=== PATIENT | male | born 1970 | race Caucasian/White ===

== ENCOUNTER 2017-01-04 01:27 | Emergency (ER) | payer OTHER ==
[~2017-01-04] VITALS: Ht 175.3 cm; Wt 82.7 kg
[~2017-01-04 01:27] MED LIST: ATEN50TA8 PO; CLON0.5T3 PO; EPP3/2 IM; HYDR50CA2 PO; MULT-506 PO
[2017-01-04 01:31] VITALS: TEMP 36.7; Ht 175.3 cm; Wt 82.7 kg
[2017-01-04] MEDS ORDERED: ONDANSETRON INJ 2 MG/ML 2 ML VIAL IV STA (01:56)
[2017-01-04] MEDS ORDERED: SODIUM CHLORIDE 0.9% 1000ML 1,000 ML IV STA (01:56)
[2017-01-04] MEDS ORDERED: TRAM-10 PO (01:57)
--- NOTE | 2017-01-04 02:02 | EMERGENCY ROOM VISIT NOTE ---
History Report prepared by Nicolasa: Marcellus Pacheco Under the Supervision of: Dr. Camden Bennett D.O. First contact with patient: 01:52 Chief Complaint: PAIN (GENERALIZED) Stated Complaint: PAIN/ALCOHOL WITHDRAWL History of Present Illness The patient is a 46 year old male who presents to the Emergency Room with complaints of generalized pain that began this morning. The patient has a past medical history of multiple back, knee, and ankle surgeries. He states that he has severe generalized pain. He has been drinking alcohol to cope with the pain. However, he stopped drinking after this morning because he wanted to be treated at the [facility] for his alcohol use. While at the [facility], he began to shake. He thinks he may be going through withdrawal. Source of History: patient Onset: chronic Position: other (global) Symptom Intensity: severe Quality: other (Generalized pain) Timing: constant Note: He is shaking. He denies any other abnormal symptoms. Review of Systems See HPI for pertinent positives and negatives. A total of ten systems were reviewed and were otherwise negative. Past Medical & Surgical Medical Problems: (1) Acute alcohol intoxication (2) Anxiety State Nos (3) Chronic back pain (4) Chronic low back pain (5) Effusion of left knee (6) Foot pain (7) Gout (8) HTN (hypertension) (9) Left knee pain (10) Mood disorder (11) Opioid dependence on agonist therapy (12) Opioid Dependence-Unspec (13) Wrist pain, right Surgical Problems: (1) Postoperative state (2) S/P arthroscopic knee surgery (3) S/P lumbar fusion Family History Diabetes mellitus Hypertension Social History Smoking Status: Former Smoker Alcohol Use: occasionally Drug Use: none Marital Status: single Occupation Status: employed Current/Historical Medications Scheduled Atenolol (Tenormin), 50 MG PO DAILY Epinephrine (Epipen), 0.3 MG IM UD Scheduled PRN Clonazepam (Klonopin), 0.5 MG PO TID PRN for Anxiety Tramadol (Ultram), 50 MG PO DIRECTED PRN for Pain Allergies Coded Allergies: No Known Allergies (Verified , 01/04/17) Physical Exam Vital Signs Date Time Temp Pulse Resp B/P (MAP) Pulse Ox O2 Delivery O2 Flow Rate FiO2 01/04/17 03:32 78 20 129/76 99 Room Air 01/04/17 02:28 67 01/04/17 02:19 71 18 135/90 99 Room Air 01/04/17 01:31 36.7 77 18 150/93 98 Room Air Physical Exam GENERAL: Awake, alert, well-appearing, in no distress. Alcohol on breath. HENT: Normocephalic, atraumatic. Oropharynx unremarkable. EYES: Normal conjunctiva. Sclera non-icteric. NECK: Supple. No nuchal rigidity. FROM. No JVD. RESPIRATORY: Clear to auscultation. CARDIAC: Regular rate, normal rhythm. Extremities warm and well perfused. Pulses equal. ABDOMEN: Soft, non-distended. No tenderness to palpation. No rebound or guarding. No masses. RECTAL: Deferred. MUSCULOSKELETAL: Chest examination reveals no tenderness. The back is symmetrical on inspection without obvious abnormality. There is no CVA tenderness to palpation. No joint edema. LOWER EXTREMITIES: Calves are equal size bilaterally and non-tender. No edema. No discoloration. NEURO: Normal sensorium. No sensory or motor deficits noted. SKIN: No rash or jaundice noted. Medical Decision & Procedures Laboratory Results 01/04/17 01:54 Red Blood Count 4.46, Mean Corpuscular Volume 95.5, Mean Corpuscular Hemoglobin 33.0, Mean Corpuscular Hemoglobin Concent 34.5, Mean Platelet Volume 10.6, Neutrophils (%) (Auto) 45.4, Lymphocytes (%) (Auto) 43.3, Monocytes (%) (Auto) 7.6, Eosinophils (%) (Auto) 2.0, Basophils (%) (Auto) 1.2, Neutrophils # (Auto) 2.95, Lymphocytes # (Auto) 2.81, Monocytes # (Auto) 0.49, Eosinophils # (Auto) 0.13, Basophils # (Auto) 0.08 01/04/17 01:54 Test 01/04/17 01:54 White Blood Count 6.49 K/uL (4.8-10.8) Red Blood Count 4.46 M/uL (4.7-6.1) Hemoglobin 14.7 g/dL (14.0-18.0) Hematocrit 42.6 % (42-52) Mean Corpuscular Volume 95.5 fL (80-100) Mean Corpuscular Hemoglobin 33.0 pg (25-34) Mean Corpuscular Hemoglobin Concent 34.5 g/dl (32-36) Platelet Count 249 K/uL (130-400) Mean Platelet Volume 10.6 fL (7.4-10.4) Neutrophils (%) (Auto) 45.4 % Lymphocytes (%) (Auto) 43.3 % Monocytes (%) (Auto) 7.6 % Eosinophils (%) (Auto) 2.0 % Basophils (%) (Auto) 1.2 % Neutrophils # (Auto) 2.95 K/uL (1.4-6.5) Lymphocytes # (Auto) 2.81 K/uL (1.2-3.4) Monocytes # (Auto) 0.49 K/uL (0.11-0.59) Eosinophils # (Auto) 0.13 K/uL (0-0.5) Basophils # (Auto) 0.08 K/uL (0-0.2) RDW Standard Deviation 51.4 fL (36.4-46.3) RDW Coefficient of Variation 14.7 % (11.5-14.5) Immature Granulocyte % (Auto) 0.5 % Immature Granulocyte # (Auto) 0.03 K/uL (0.00-0.02) Anion Gap 7.0 mmol/L (3-11) Est Creatinine Clear Calc Drug Dose 93.3 ml/min Estimated GFR () 104.9 Estimated GFR (Non- 90.5 BUN/Creatinine Ratio 13.0 (10-20) Calcium Level 9.3 mg/dl (8.5-10.1) Magnesium Level 2.2 mg/dl (1.8-2.4) Total Bilirubin 0.3 mg/dl (0.2-1) Direct Bilirubin 0.1 mg/dl (0-0.2) Aspartate Amino Transf (AST/SGOT) 30 U/L (15-37) Alanine Aminotransferase (ALT/SGPT) 39 U/L (12-78) Alkaline Phosphatase 74 U/L (45-117) Total Protein 7.2 gm/dl (6.4-8.2) Albumin 4.0 gm/dl (3.4-5.0) Ethyl Alcohol mg/dL 214.0 mg/dl (0-3) Laboratory results reviewed by me Medications Administered Medications (Trade) Dose Ordered Sig/Shanika Route Start Time Stop Time Status Last Admin Dose Admin Sodium Chloride 1,000 ml @ 999 mls/hr Q1H1M STAT IV 01/04/17 01:56 01/04/17 02:56 DC 01/04/17 02:19 999 MLS/HR Ondansetron HCl (Zofran Inj) 4 mg NOW STAT IV 01/04/17 01:56 01/04/17 01:58 DC 01/04/17 02:19 4 MG Lorazepam (Ativan Inj) 1 mg NOW STAT IV 01/04/17 02:54 01/04/17 02:55 DC 01/04/17 03:00 1 MG ED Course 0152: The patient was evaluated in room B10. A complete history and physical exam was performed. 0156: Ordered Zofran Inj 4 mg IV, Sodium Chloride 1000 ml @ 999 mls/hr IV 0254: Ordered Lorazepam 1 mg IV 0348: I reevaluated the patient. Discussed results and discharge instructions: He verbalized understanding and agreement. The patient is ready for discharge. Medical Decision Differential diagnoses include but are not limited to; alcohol abuse, electrolyte abnormality, chronic pain, and dehydration. Medication Reconciliation: I attest that I have personally reviewed the patient' s current medication list. Blood pressure screening: Patient was found to have normal blood pressure on screening and does not require follow-up. Patient resting in no distress on repeat examination 4:09 AM. Patient initially wanted to leave and drive home he was told he needed to find a ride. Patient has no other current complaints he was evaluated for alcohol abuse Impression Primary Impression: Alcohol abuse Additional Impression: Generalized pain Scribe Attestation The scribe's documentation has been prepared under my direction and personally reviewed by me in its entirety. I confirm that the note above accurately reflects all work, treatment, procedures, and medical decision making performed by me. Departure Information Dispostion Home / Self-Care Referrals No Doctor, Assigned (PCP) Forms HOME CARE DOCUMENTATION FORM, IMPORTANT VISIT INFORMATION, WORK / SCHOOL INSTRUCTIONS Patient Instructions ED Alcohol Abuse, My [facility] Health Problem Qualifiers
[2017-01-04 02:10] LABS: BASO % 1.2 %; BASO ABS # 0.08 K/uL (0-0.2); COMPLETE YES; HEMATOCRIT 42.6 % (42-52); IG% 0.5 %; LYMPH % 43.3 %; LYMPH ABS # 2.81 K/uL (1.2-3.4); MEAN CELL VOLUME 95.5 fL (80-100); MEAN CORPUSCULAR HGB CONC 34.5 g/dl (32-36); MEAN PLATELET VOLUME 10.6 fL (7.4-10.4); MONO % 7.6 %; NEUT % 45.4 %; PLATELET COUNT 249 K/uL (130-400); RED BLOOD COUNT 4.46 M/uL (4.7-6.1); WHITE BLOOD COUNT 6.49 K/uL (4.8-10.8)
[2017-01-04 02:29] LABS: CALCIUM 9.3 mg/dl (8.5-10.1); MAGNESIUM 2.2 mg/dl (1.8-2.4); POTASSIUM 4.1 mmol/L (3.5-5.1)
[2017-01-04] MEDS ORDERED: LORAZEPAM 2 MG/ML 1 ML VIAL IV STA (02:54)
[2017-01-04 09:04] VITALS: BP 143/95; PULSE 78; O2SAT 97
== END 2017-01-04 09:06 | disposition home or self-care (01) ==
LOC: C.EDB 01:28
DX: F10.10 Alcohol abuse, uncomplicated (principal); R52 Pain, unspecified; F41.9 Anxiety disorder, unspecified; M54.5 Low back pain; M10.9 Gout, unspecified; I10 Essential (primary) hypertension; F11.20 Opioid dependence, uncomplicated; Z83.3 Family history of diabetes mellitus; Z82.49 Family history of ischemic heart disease and other diseases of the circulatory system; Z87.891 Personal history of nicotine dependence; Z79.899 Other long term (current) drug therapy

== ENCOUNTER 2017-03-01 18:35 | Emergency (ER) | payer OTHER ==
[~2017-03-01 18:35] MED LIST changes: -HYDR50CA2 PO; -MULT-506 PO; +TRAM-10 PO
[2017-03-01 18:40] VITALS: Ht 175.3 cm
[2017-03-01] MEDS ORDERED: HYDROmorphone INJ 1 MG/ML SYR IV PRN (19:00)
[2017-03-01] MEDS ORDERED: ONDANSETRON INJ 2 MG/ML 2 ML VIAL IV PRN (19:00)
[2017-03-01] MEDS ORDERED: INDOMETHACIN 25 MG CAP PO ONE (19:00)
[2017-03-01 19:21] LABS: BASO % 0.3 %; BASO ABS # 0.02 K/uL (0-0.2); COMPLETE YES; EOS % 3.6 %; HEMATOCRIT 38.8 % (42-52); IG% 0.2 %; LYMPH % 11.3 %; LYMPH ABS # 0.75 K/uL (1.2-3.4); MEAN CELL VOLUME 93.3 fL (80-100); MEAN CORPUSCULAR HEMOGLOBIN 32.5 pg (25-34); MEAN CORPUSCULAR HGB CONC 34.8 g/dl (32-36); MEAN PLATELET VOLUME 10.9 fL (7.4-10.4); MONO % 4.4 %; NEUT % 80.2 %; PLATELET COUNT 192 K/uL (130-400); RED BLOOD COUNT 4.16 M/uL (4.7-6.1); WHITE BLOOD COUNT 6.62 K/uL (4.8-10.8)
[2017-03-01] MEDS ORDERED: TRAM-10 PO (19:24)
[2017-03-01] MEDS ORDERED: CLON1TAB3 PO (19:24)
[2017-03-01] MEDS ORDERED: ATEN50TA8 PO (19:24)
[2017-03-01] MEDS ORDERED: ALLO300T2 PO (19:24)
[2017-03-01] MEDS ORDERED: QUET1TAB34 PO (19:24)
[2017-03-01 19:37] LABS: BLOOD UREA NITROGEN 14 mg/dl (7-18); CALCIUM 9.4 mg/dl (8.5-10.1); CARBON DIOXIDE 30 mmol/L (21-32); CHLORIDE 107 mmol/L (98-107); CREATININE 0.94 mg/dl (0.60-1.40); GLUCOSE 106 mg/dl (70-99); POTASSIUM 3.7 mmol/L (3.5-5.1); SODIUM 143 mmol/L (136-145)
[2017-03-01 19:42] LABS: URIC ACID 3.4 mg/dl (2.6-7.2)
--- NOTE | 2017-03-01 19:48 | DIAGNOSTIC IMAGING REPORT ---
LEFT FOOT MIN 3 VIEWS ROUTINE CLINICAL HISTORY: severe pain gout/cellulitis. Left foot pain. COMPARISON STUDY: Left foot 01/09/2012. FINDINGS: Mild osteoarthritis at the first MTP joint, unchanged. No acute fracture or dislocation. The Lisfranc joint is well aligned. Small plantar and posterior calcaneal spurs. Soft tissue swelling within the first and second MTP joints. There are tiny periarticular erosions at the first and second MTP joints. This is most pronounced at the head of the second metatarsal and base of the proximal phalanx of the second toe. No soft tissue calcifications. IMPRESSION: Soft tissue swelling with tiny bony erosions at the first and second MTP joints. This favors an inflammatory arthritis such as gout. Osteomyelitis could also have a similar appearance in the appropriate clinical setting. Electronically signed by: Mervin Duarte M.D. 03/01/2017 7:46 PM Dictated Date/Time: 03/01/2017 7:42 PM
[2017-03-01] MEDS ORDERED: INDO50CA97 PO (20:09)
--- NOTE | 2017-03-01 20:13 | EMERGENCY ROOM VISIT NOTE ---
History Report prepared by Nicolasa: Cheyenne Alegria Under the Supervision of: Dr. Frankie Macedo M.D. First contact with patient: 18:43 Chief Complaint: FOOT PAIN Stated Complaint: GOUT FLARE UP IN LF FOOT History of Present Illness The patient is a 46 year old male who presents to the Emergency Room with complaints of an episode of severe left foot pain starting yesterday. The patient states that he felt it coming on yesterday. He states that he took his gout medication and iced it yesterday with some relief. He reports that he awoke this morning and it seemed to be the worst he has ever had it before. He notes a tingling sensation down his leg when he touched his knee. He notes he took Naprosyn and Tylenol today with no relief. He notes he tried icing and elevating it today with no relief. He denies injuring his foot. Source of History: patient Onset: yesterday Position: foot (left) Symptom Intensity: severe Quality: tingling Timing: other (episode) Note: The patient complains of foot swelling. The patient denies injuring his foot. Review of Systems All systems have been listed, reviewed, and are negative other than those previously mentioned. Please see Additional Medical History Sheet. Past Medical & Surgical Medical Problems: (1) Acute alcohol intoxication (2) Anxiety State Nos (3) Chronic back pain (4) Chronic low back pain (5) Effusion of left knee (6) Foot pain (7) Gout (8) History of gout (9) HTN (hypertension) (10) Left knee pain (11) Mood disorder (12) Opioid dependence on agonist therapy (13) Opioid Dependence-Unspec (14) Wrist pain, right Surgical Problems: (1) Postoperative state (2) S/P arthroscopic knee surgery (3) S/P lumbar fusion Family History Diabetes mellitus Hypertension Social History Smoking Status: Former Smoker Alcohol Use: occasionally Drug Use: none Marital Status: single Occupation Status: employed Current/Historical Medications Scheduled Allopurinol (Zyloprim), 300 MG PO DAILY Atenolol (Tenormin), 50 MG PO DAILY Epinephrine (Epipen), 0.3 MG IM UD Indomethacin (Indocin), 1 CAP PO TID Scheduled PRN Clonazepam (Klonopin), 1 MG PO TID PRN for RESTLESS LEGS Quetiapine Fumarate (Seroquel), 100 MG PO HS PRN for Sleep Tramadol (Ultram), 100 MG PO Q6 PRN for Pain Allergies Coded Allergies: No Known Allergies (Verified , 01/04/17) Physical Exam Vital Signs Date Time Temp Pulse Resp B/P (MAP) Pulse Ox O2 Delivery O2 Flow Rate FiO2 03/01/17 20:20 36.8 80 20 172/99 100 03/01/17 18:40 36.8 80 20 172/99 100 Room Air Physical Exam GENERAL: Patient awake, alert, oriented x 3. Patient follows commands. Patient does not appear toxic. Patient is adequately hydrated and well- nourished. SKIN: No erythema, pallor, cyanosis or rash HEENT: Normal head, pupils equal, reactive to light and accommodation. LUNGS: Clear to auscultation. No wheezes, no rales, no rhonchi. HEART: No murmurs. No gallops. No rubs ABDOMEN: No masses, no rebound, no hepatomegaly or splenomegaly. EXTREMITIES: No signs of trauma. Tha swelling and tenderness of left foot primarily over the dorsum of the foot. Slightly red, but no other signs of infection. No calf or thigh tenderness. Old scar on medial aspect of left lower leg. NEUROLOGIC: Cranial nerves II-XII within normal limits. No gross motor sensory function deficits. Medical Decision & Procedures ER Provider Diagnostic Interpretation: Radiology results as stated below per my review and radiologist interpretation: LEFT FOOT MIN 3 VIEWS ROUTINE CLINICAL HISTORY: severe pain gout/cellulitis. Left foot pain. COMPARISON STUDY: Left foot 01/09/2012. FINDINGS: Mild osteoarthritis at the first MTP joint, unchanged. No acute fracture or dislocation. The Lisfranc joint is well aligned. Small plantar and posterior calcaneal spurs. Soft tissue swelling within the first and second MTP joints. There are tiny periarticular erosions at the first and second MTP joints. This is most pronounced at the head of the second metatarsal and base of the proximal phalanx of the second toe. No soft tissue calcifications. IMPRESSION: Soft tissue swelling with tiny bony erosions at the first and second MTP joints. This favors an inflammatory arthritis such as gout. Osteomyelitis could also have a similar appearance in the appropriate clinical setting. Electronically signed by: Mervin Duarte M.D. 03/01/2017 7:46 PM Dictated Date/Time: 03/01/2017 7:42 PM Laboratory Results 03/01/17 19:10 Red Blood Count 4.16, Mean Corpuscular Volume 93.3, Mean Corpuscular Hemoglobin 32.5, Mean Corpuscular Hemoglobin Concent 34.8, Mean Platelet Volume 10.9, Neutrophils (%) (Auto) 80.2, Lymphocytes (%) (Auto) 11.3, Monocytes (%) (Auto) 4.4, Eosinophils (%) (Auto) 3.6, Basophils (%) (Auto) 0.3, Neutrophils # (Auto) 5.31, Lymphocytes # (Auto) 0.75, Monocytes # (Auto) 0.29, Eosinophils # (Auto) 0.24, Basophils # (Auto) 0.02 03/01/17 19:10 Test 03/01/17 19:10 White Blood Count 6.62 K/uL (4.8-10.8) Red Blood Count 4.16 M/uL (4.7-6.1) Hemoglobin 13.5 g/dL (14.0-18.0) Hematocrit 38.8 % (42-52) Mean Corpuscular Volume 93.3 fL (80-100) Mean Corpuscular Hemoglobin 32.5 pg (25-34) Mean Corpuscular Hemoglobin Concent 34.8 g/dl (32-36) Platelet Count 192 K/uL (130-400) Mean Platelet Volume 10.9 fL (7.4-10.4) Neutrophils (%) (Auto) 80.2 % Lymphocytes (%) (Auto) 11.3 % Monocytes (%) (Auto) 4.4 % Eosinophils (%) (Auto) 3.6 % Basophils (%) (Auto) 0.3 % Neutrophils # (Auto) 5.31 K/uL (1.4-6.5) Lymphocytes # (Auto) 0.75 K/uL (1.2-3.4) Monocytes # (Auto) 0.29 K/uL (0.11-0.59) Eosinophils # (Auto) 0.24 K/uL (0-0.5) Basophils # (Auto) 0.02 K/uL (0-0.2) RDW Standard Deviation 47.7 fL (36.4-46.3) RDW Coefficient of Variation 14.0 % (11.5-14.5) Immature Granulocyte % (Auto) 0.2 % Immature Granulocyte # (Auto) 0.01 K/uL (0.00-0.02) Anion Gap 6.0 mmol/L (3-11) Estimated GFR () 113.0 Estimated GFR (Non- 97.5 BUN/Creatinine Ratio 15.0 (10-20) Uric Acid 3.4 mg/dl (2.6-7.2) Calcium Level 9.4 mg/dl (8.5-10.1) Laboratory results as stated above per my review. Medications Administered Medications (Trade) Dose Ordered Sig/Shanika Route Start Time Stop Time Status Last Admin Dose Admin Hydromorphone HCl (Dilaudid Inj) 1 mg Q1HWA PRN IV 03/01/17 19:00 03/01/17 22:34 DC 03/01/17 19:03 1 MG Ondansetron HCl (Zofran Inj) 4 mg Q1HWA PRN IV 03/01/17 19:00 03/01/17 22:34 DC 03/01/17 19:03 4 MG Indomethacin (Indocin Cap) 25 mg NOW ONCE PO 03/01/17 19:00 03/01/17 19:01 DC 03/01/17 19:03 25 MG Prednisone (PredniSONE TAB) 60 mg NOW STAT PO 03/01/17 20:06 03/01/17 20:08 DC 03/01/17 20:14 60 MG Oxycodone/ Acetaminophen (Percocet 5/ 325MG Home Pack) 1 homepack UD ONCE PO 03/01/17 20:15 03/01/17 20:16 DC 03/01/17 20:14 1 HOMEPACK ED Course 1843: Past medical records reviewed. The patient was evaluated in room B11B. A complete history and physical examination was performed. 1899: Ordered Indocin Cap 25 mg PO, Zofran Inj 4 mg PRN IV nausea, Dilaudid Inj 1 mg PRN IV pain. 1957:Upon reevaluation, the patient appeared to have improvement of his symptoms. I discussed today's findings with the patient. He verbalized agreement of the treatment plan. The patient was discharged home. 2005: Ordered Prednisone 60 mg PO. 2015: Ordered Percocet 5/325MG Home Pack 1 homepack PO. Medical Decision Differential diagnoses include gout, cellulitis. The patient is here with severe left foot pain. He has marked swelling and tenderness of the left foot. The patient has a prior history of gout but this seems to be worse than usual. I was concerned about the amount of swelling and therefore x-rays were obtained in addition to blood work. His uric acid level is not elevated. He is on allopurinol. The patient does have erosions on his x -ray consistent with gout. The patient initially was given pain medication plus Indocin. I elected to give him 1 dose of prednisone but will have him maintain on Indocin at home. The patient does have a history of some mental health issues and therefore I will not continue the prednisone. The patient will need to follow-up with his family physician regarding gout and his elevated blood pressure Medication Reconcilliation Current Medication List: was personally reviewed by me Blood Pressure Screening Patient's blood pressure: Elevated blood pressure Blood pressure disposition: Referred to PCP Impression Primary Impression: Acute gout Scribe Attestation The scribe's documentation has been prepared under my direction and personally reviewed by me in its entirety. I confirm that the note above accurately reflects all work, treatment, procedures, and medical decision making performed by me. Departure Information Dispostion Home / Self-Care Prescriptions Indomethacin (INDOCIN) 50 Mg Cap 1 CAP PO TID for 10 Days, #30 CAP 1 Refill Prov: Frankie Macedo M.D. 03/01/17 Referrals No Doctor, Assigned (PCP) Forms HOME CARE DOCUMENTATION FORM, IMPORTANT VISIT INFORMATION Patient Instructions Gout, [facility] Additional Instructions 50 mg of Indocin 3 times a day until pain has resolved. 1-2 Percocet every 4 hours as needed for severe pain. Drink extra fluids. Follow-up with your family physician within the next 10 days regarding gout and your elevated blood pressure.
[2017-03-01] MEDS ORDERED: PERCOCET HOME PACK PO ONE (20:15)
[2017-03-01 20:20] VITALS: BP 172/99; PULSE 80; TEMP 36.8; O2SAT 100
== END 2017-03-01 20:20 | disposition home or self-care (01) ==
LOC: C.EDB 18:35
DX: M10.9 Gout, unspecified (principal); F41.9 Anxiety disorder, unspecified; M54.5 Low back pain; G89.29 Other chronic pain; I10 Essential (primary) hypertension; F11.20 Opioid dependence, uncomplicated; Z83.3 Family history of diabetes mellitus; Z82.49 Family history of ischemic heart disease and other diseases of the circulatory system; Z87.891 Personal history of nicotine dependence; Z79.899 Other long term (current) drug therapy

== ENCOUNTER 2017-07-12 19:11 | Inpatient (IN) | payer OTHER ==
[~2017-07-12] VITALS: Ht 177.8 cm; Wt 80.3 kg
[~2017-07-12 19:11] MED LIST changes: +ALLO300T2 PO; -CLON0.5T3 PO; +CLON1TAB3 PO; +INDO50CA97 PO; +QUET1TAB34 PO
--- NOTE | 2017-07-12 19:25 | EMERGENCY ROOM VISIT NOTE ---
History Report prepared by Nicolasa: Mike Nieves Under the Supervision of: Dr. Stephen Nix M.D. First contact with patient: 19:20 Stated Complaint: OVERDOSE History of Present Illness The patient is a 47 year old male who presents to the Emergency Room with complaints of an episode of an overdose occurring today. Per nursing staff, the patient's daughter found him wandering around today. She notes that the daughter found several beer cans lying around. She reports that the patient has a history of alcoholism, and typically drinks vodka. She notes that the patient was found with vomit on his face. The patient reports that he is not experiencing any pain. HPI limited secondary to intoxication. Source of History: patient History Limited By: intoxication Onset: today Quality: other (intoxication) Timing: other (an episode) Associated Symptoms: + vomiting Note: The patient states that he is not currently experiencing any pain. Review of Systems ROS limited secondary to intoxication. Past Medical & Surgical Medical Problems: (1) Acute alcohol intoxication (2) Alcohol withdrawal (3) Anxiety State Nos (4) Chronic back pain (5) Chronic low back pain (6) Effusion of left knee (7) Foot pain (8) Gout (9) History of gout (10) HTN (hypertension) (11) Left knee pain (12) Mood disorder (13) Opioid dependence on agonist therapy (14) Opioid Dependence-Unspec (15) Wrist pain, right Surgical Problems: (1) Postoperative state (2) S/P arthroscopic knee surgery (3) S/P lumbar fusion Family History Diabetes mellitus Hypertension Social History Smoking Status: Former Smoker Alcohol Use: occasionally Drug Use: none Marital Status: single Occupation Status: employed Current/Historical Medications Unable to Obtain Active Prescriptions or Reported Meds Allergies Coded Allergies: No Known Allergies (Verified , 01/04/17) Physical Exam Vital Signs Date Time Temp Pulse Resp B/P (MAP) Pulse Ox O2 Delivery O2 Flow Rate FiO2 07/12/17 22:11 142 15 07/12/17 21:56 125 29 96 07/12/17 21:44 Nasal Cannula 2.0 07/12/17 21:41 108 97 07/12/17 21:31 159/92 07/12/17 21:26 138 99 07/12/17 21:11 109 98 07/12/17 21:01 166/101 07/12/17 20:56 128 35 97 07/12/17 20:41 135 23 188/119 07/12/17 20:31 221/210 07/12/17 20:26 148 21 98 07/12/17 20:22 131/102 07/12/17 19:47 153/101 07/12/17 19:41 110 28 97 07/12/17 19:29 106 07/12/17 19:23 37.5 109 18 184/108 96 07/12/17 19:22 184/108 Physical Exam GENERAL: Awake, alert, drowsy-appearing, in no distress HENT: Normocephalic, atraumatic. Oropharynx unremarkable. Dry mucous membranes. EYES: Normal conjunctiva. Sclera non-icteric. Pupils are 3mm bilaterally and reactive. NECK: Supple. No nuchal rigidity. FROM. No JVD. RESPIRATORY: Clear to auscultation. CARDIAC: Regular rate, normal rhythm. Extremities warm and well perfused. Pulses equal. ABDOMEN: Soft, non-distended. No tenderness to palpation. No rebound or guarding. No masses. RECTAL: Deferred. MUSCULOSKELETAL: Chest examination reveals no tenderness. The back is symmetrical on inspection without obvious abnormality. There is no CVA tenderness to palpation. No joint edema. LOWER EXTREMITIES: Calves are equal size bilaterally and non-tender. No edema. No discoloration. NEURO: Normal sensorium. No sensory or motor deficits noted. Slurred speech. No clonus. Normal DTRs. SKIN: Warm/dry. No rash or jaundice noted. Medical Decision & Procedures ER Provider Diagnostic Interpretation: Radiology results as stated below per my review and radiologist interpretation: HEAD WITHOUT CONTRAST (CT) FINDINGS: Form Worker topogram: Unremarkable. Image quality is degraded by significant motion artifact limiting diagnostic sensitivity. Ventricles and sulci normal in size. Brain parenchyma normal in appearance with preserved tai-white differentiation. No mass effect or midline shift. No hemorrhage or acute territorial infarct. No extra-axial fluid collection. Minimal layering fluid in the right maxillary sinus. Calvarium intact. IMPRESSION: 1. Allowing for degradation of image quality due to motion artifact, no acute intracranial abnormality. Electronically signed by: Jg Mota M.D. 07/12/2017 8:17 PM CHEST ONE VIEW PORTABLE FINDINGS: Mildly low lung volumes with prominence of the cardiomediastinal silhouette and pulmonary vasculature. Lungs and pleural spaces otherwise clear. Osseous structures normal. Upper abdomen normal. IMPRESSION: 1. Mildly low lung volumes. Otherwise no acute cardiopulmonary disease. Electronically signed by: Jg Mota M.D. 07/12/2017 9:24 PM Laboratory Results Test 07/12/17 19:43 07/12/17 19:45 07/12/17 22:10 Total Bilirubin 0.4 mg/dl (0.2-1) Direct Bilirubin < 0.1 mg/dl (0-0.2) Aspartate Amino Transf (AST/SGOT) 23 U/L (15-37) Alanine Aminotransferase (ALT/SGPT) 25 U/L (12-78) Alkaline Phosphatase 83 U/L (45-117) Total Protein 7.4 gm/dl (6.4-8.2) Albumin 3.8 gm/dl (3.4-5.0) Globulin 3.6 gm/dl (2.5-4.0) Albumin/Globulin Ratio 1.1 (0.9-2) Thyroid Stimulating Hormone (TSH) 1.590 uIu/ml (0.300-4.500) Salicylates Level < 1.7 mg/dl (2.8-20) Acetaminophen Level < 2 ug/ml (10-30) Ethyl Alcohol mg/dL 51.5 mg/dl (0-3) Procalcitonin < 0.05 ng/ml (0-0.5) Magnesium Level 2.0 mg/dl (1.8-2.4) Total Creatine Kinase 299 U/L (39-308) Troponin I 0.023 ng/ml (0-0.045) Beta-Hydroxybutyric Acid 1.23 mg/dL (0.2-2.81) Laboratory results reviewed by me Medications Administered Medications (Trade) Dose Ordered Sig/Shanika Route Start Time Stop Time Status Last Admin Dose Admin Lorazepam (Ativan Inj) 2 mg STK-MED ONCE .ROUTE 07/12/17 20:16 07/12/17 20:17 DC 07/12/17 20:20 2 MG Olanzapine (Zyprexa Inj) 10 mg NOW STAT IM 07/12/17 20:16 07/12/17 20:17 DC 07/12/17 20:20 10 MG Potassium Chloride/Sodium Chloride 1,000 ml @ 200 mls/hr Q5H ONCE IV 07/12/17 21:15 07/12/17 23:33 DC 07/12/17 22:22 200 MLS/HR Lorazepam (Ativan Inj) PRN Dosing -Active Protocol Q1H PRN IV 07/12/17 21:15 08/11/17 21:14 07/13/17 13:35 1 MG ECG Indication: other (overdose) Rate (beats per minute): 106 Rhythm: sinus tachycardia Findings: no acute ischemic change, other (Normal axis, normal interval, nonspecific anterior ST and T wave abnormalities) ED Course 1919: The patient was evaluated in room A10. A complete history and physical exam was performed. 2052: Upon reexamination, the patient was stable. I discussed the test results and treatment plan with him. The patient will be evaluated for further management. Medical Decision I reviewed the patient's past medical history, medications, and the nursing notes as described above. Differential diagnoses include: polysubstance overdose, alcohol intoxication, intracranial hemorrhage, encephalopathy, alcohol withdrawal, Delirium tremens. The patient is a 47-year-old gentleman with a past medical history of alcohol abuse and opioid abuse who presents emergency Department after being found altered in his home apparently having vomited on himself. On arrival the patient is spontaneously alert however staring and requiring stimulus to interact and only giving one-word replies. Exam negative for clonus and otherwise normal reflexes. Pupils 3 mm bilaterally and reactive. Skin is warm and dry. Has mild slurred speech. 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 Otherwise, no significant toxidrome. Labs notable for bicarbonate of 18 with a gap of 16. Etoh 50s. Lactate pending. Given the patient's history and these findings workup likely consistent with alcoholic ketoacidosis. Patient was given additional IV fluids with D5NS. After having CT of the head patient became significantly combative with staff and required IM Zyprexa and Ativan. CT head negative. Family denies h/o or concerns for SI. It [facility], who will admit the patient for further management. Medication Reconcilliation Current Medication List: was personally reviewed by me Blood Pressure Screening Patient's blood pressure: Elevated blood pressure Referred to the hospitalist. Consults Time Called: 2049 Consulting Physician: Dr. Knapp - Nacho Culp Returned Call: 2052 I discussed the patient with Dr. Knapp - HospitalistNacho. He will evaluate the patient for further treatment. Impression Primary Impression: Alcoholic ketoacidosis Additional Impression: Polysubstance overdose Critical Care I have personally spent greater than 80 minutes of critical care time in the direct management of this patient. This includes bedside care, interpretation of diagnostic studies, and testing, discussion with consultants, patient, and family members, and other required patient management activities. This 80 minutes is in excess of all separately billable procedures. Scribe Attestation The scribe's documentation has been prepared under my direction and personally reviewed by me in its entirety. I confirm that the note above accurately reflects all work, treatment, procedures, and medical decision making performed by me. Departure Information Dispostion Being Evaluated By Hospitalist (ERASED) Prescriptions Unable to Obtain Active Prescriptions or Reported Meds Referrals No Doctor, Assigned (PCP) Problem Qualifiers
[2017-07-12] MEDS ORDERED: SODIUM CHLORIDE 0.9% 1000ML 1,000 ML IV STA (19:28)
[2017-07-12 20:03] LABS: BASO % 0.5 %; BASO ABS # 0.08 K/uL (0-0.2); COMPLETE YES; HEMATOCRIT 44.8 % (42-52); IG% 0.4 %; LYMPH % 6.3 %; LYMPH ABS # 1.05 K/uL (1.2-3.4); MEAN CELL VOLUME 94.7 fL (80-100); MEAN CORPUSCULAR HGB CONC 34.8 g/dl (32-36); MEAN PLATELET VOLUME 10.8 fL (7.4-10.4); MONO % 6.7 %; NEUT % 86.1 %; PLATELET COUNT 290 K/uL (130-400); RED BLOOD COUNT 4.73 M/uL (4.7-6.1); WHITE BLOOD COUNT 16.77 K/uL (4.8-10.8)
[2017-07-12] MEDS ORDERED: LORAZEPAM 2 MG/ML 1 ML VIAL IM STA (20:16)
[2017-07-12] MEDS ORDERED: OLANZAPINE 10 MG/2.1 ML SDV IM STA (20:16)
[2017-07-12] MEDS ORDERED: LORAZEPAM 2 MG/ML 1 ML VIAL ONE ×2 (20:16→22:40)
--- NOTE | 2017-07-12 20:18 | DIAGNOSTIC IMAGING REPORT ---
HEAD WITHOUT CONTRAST (CT) CLINICAL HISTORY: 47 years-old Male presenting with ams, combative, alcohol overdose. TECHNIQUE: Multidetector CT imaging of the head was performed without the use of intravenous contrast. IV contrast: None. A dose lowering technique was used consistent with the principles of ALARA (as low as reasonably achievable). COMPARISON: 04/20/2015. CT DOSE (mGy.cm): The estimated cumulative dose is 2128.43 mGy.cm. FINDINGS: Telephone Appointment Clerk topogram: Unremarkable. Image quality is degraded by significant motion artifact limiting diagnostic sensitivity. Ventricles and sulci normal in size. Brain parenchyma normal in appearance with preserved tai-white differentiation. No mass effect or midline shift. No hemorrhage or acute territorial infarct. No extra-axial fluid collection. Minimal layering fluid in the right maxillary sinus. Calvarium intact. IMPRESSION: 1. Allowing for degradation of image quality due to motion artifact, no acute intracranial abnormality. Electronically signed by: Jg Mota M.D. 07/12/2017 8:17 PM Dictated Date/Time: 07/12/2017 8:14 PM
[2017-07-12 20:22] LABS: ALT/SGPT 25 U/L (12-78); BLOOD UREA NITROGEN 13 mg/dl (7-18); BUN/CREATININE RATIO 9.3 (10-20); CALCIUM 8.7 mg/dl (8.5-10.1); CARBON DIOXIDE 19 mmol/L (21-32); CHLORIDE 114 mmol/L (98-107); CREATININE 1.39 mg/dl (0.60-1.40); GLUCOSE 102 mg/dl (70-99); POTASSIUM 3.6 mmol/L (3.5-5.1); SODIUM 149 mmol/L (136-145)
[2017-07-12 20:27] LABS: ACETAMINOPHEN < 2 ug/ml (10-30)
[2017-07-12 20:32] LABS: ALB/GLOB RATIO 1.1 (0.9-2); ALKALINE PHOSPHATASE 83 U/L (45-117); AST/SGOT 23 U/L (15-37)
[2017-07-12] MEDS ORDERED: [UNRECOGNIZED DRUG - MIXTURE] IV STA (20:41)
[2017-07-12] MEDS ORDERED: THIAMINE HCL 100 MG/ML 2 ML VIAL IV STA (21:04)
[2017-07-12] MEDS ORDERED: GABAPENTIN 600 MG TAB PO SCH (21:15)
[2017-07-12] MEDS ORDERED: LORAZEPAM 2 MG/ML 1 ML VIAL IV PRN (21:15)
[2017-07-12] MEDS ORDERED: SODIUM CHLOR 0.45% + 20MEQ KCL 1,000 ML IV ONE (21:15)
--- NOTE | 2017-07-12 21:26 | DIAGNOSTIC IMAGING REPORT ---
CHEST ONE VIEW PORTABLE CLINICAL HISTORY: 47 years-old Male presenting with sob. TECHNIQUE: Portable supine AP view of the chest was obtained. COMPARISON: 12/21/2012. FINDINGS: Mildly low lung volumes with prominence of the cardiomediastinal silhouette and pulmonary vasculature. Lungs and pleural spaces otherwise clear. Osseous structures normal. Upper abdomen normal. IMPRESSION: 1. Mildly low lung volumes. Otherwise no acute cardiopulmonary disease. Electronically signed by: Jg Mota M.D. 07/12/2017 9:24 PM Dictated Date/Time: 07/12/2017 9:24 PM
[2017-07-12 22:34] LABS: PARTIAL THROMBOPLASTIN RATIO 0.8
[2017-07-12] MEDS ORDERED: ACETAMINOPHEN 325 MG TAB PO PRN (22:45)
[2017-07-12] MEDS ORDERED: NITROGLYCERIN 0.4 MG SL PER TAB CHARGE SL PRN (22:45)
[2017-07-12] MEDS ORDERED: OXYCODONE/ACETAMINOPHEN 5-325 TAB PO PRN (22:45)
[2017-07-12 22:50] LABS: BETA-HYDROXYBUTYRATE 1.23 mg/dL (0.2-2.81)
[2017-07-12] MEDS ORDERED: SODIUM CHLOR 0.45% + 20MEQ KCL 1,000 ML IV STA (23:29)
[2017-07-12] MEDS ORDERED: THIAMINE HCL INJ 100 MG in SYRINGE 9 ML IV SCH (23:30)
[2017-07-12] MEDS ORDERED: PROCHLORPERAZINE INJ 5 MG in SYRINGE 4 ML IV PRN (23:30)
[2017-07-13] VITALS (8 sets, daily range): BP systolic 145–195; BP diastolic 79–105; PULSE 71–100; TEMP 36.4–36.8; O2SAT 97–100; Ht 177.8 cm; Wt 80.3 kg
[2017-07-13] MEDS ORDERED: SODIUM CHLOR 0.45% + 20MEQ KCL 1,000 ML IV SCH (01:00)
[2017-07-13 01:16] LABS: URINE APPEARANCE CLEAR (CLEAR); URINE BILIRUBIN NEG (NEG); URINE COLOR YELLOW; URINE NITRITE NEG (NEG); URINE SPECIFIC GRAVITY 1.019 (1.000-1.030); UROBILINOGEN NEG (NEG); ZZUR CULT IF INDIC CLEAN CATCH NO
[2017-07-13 01:18] LABS: MANUAL MICROSCOPIC REQUIRED? NO; REVIEW REQ? NO
[2017-07-13 01:30] LABS: BENZODIAZEPINE, URINE NEG (NEG); COCAINE,URINE NEG (NEG); PHENCYCLIDINE, URINE NEG (NEG)
[2017-07-13] MEDS ORDERED: LORAZEPAM INJ 3 MG in SYRINGE 1.5 ML IV ONE (01:30)
[2017-07-13] MEDS ORDERED: METOPROLOL TARTRATE 1 MG/ML VIAL IV. SCH (02:00)
[2017-07-13] MEDS ORDERED: GABAPENTIN 1200MG LOADING DOSE PO SCH (02:00)
[2017-07-13 04:23] LABS: BASO % 0.5 %; BASO ABS # 0.05 K/uL (0-0.2); COMPLETE YES; EOS % 0.1 %; HEMATOCRIT 36.8 % (42-52); IG% 0.4 %; LYMPH % 14.6 %; LYMPH ABS # 1.43 K/uL (1.2-3.4); MEAN CELL VOLUME 95.6 fL (80-100); MEAN CORPUSCULAR HEMOGLOBIN 32.5 pg (25-34); MEAN PLATELET VOLUME 10.9 fL (7.4-10.4); NEUT % 76.4 %; PLATELET COUNT 223 K/uL (130-400); RED BLOOD COUNT 3.85 M/uL (4.7-6.1); WHITE BLOOD COUNT 9.79 K/uL (4.8-10.8)
[2017-07-13 04:34] LABS: BUN/CREATININE RATIO 11.3 (10-20); CALCIUM 7.9 mg/dl (8.5-10.1); CREATININE 1.11 mg/dl (0.60-1.40); POTASSIUM 3.7 mmol/L (3.5-5.1)
[2017-07-13] MEDS ORDERED: SODIUM CHLOR 0.45% + 20MEQ KCL 1,000 ML IV ONE (04:45)
[2017-07-13] MEDS: GABAPENTIN 600MG Q6H DOSE PO SCH ×2 (07:42→13:35)
[2017-07-13] MEDS: THIAMINE HCL 100 MG TAB PO SCH (07:43)
[2017-07-13] MEDS: MULTIVITAMIN TAB PO SCH (07:43)
[2017-07-13] MEDS: SODIUM CHLOR 0.45% + 20MEQ KCL 1,000 ML IV SCH ×2 (07:58→11:46)
[2017-07-13] MEDS ORDERED: OXYCODONE/ACETAMINOPHEN 5-325 TAB PO PRN (08:15)
--- NOTE | 2017-07-13 09:40 | HISTORY & PHYSICAL EXAMINATION ---
DATE OF ADMISSION: 07/12/2017 PCP : Unknown CHIEF COMPLAINT: Overdose as per records. HISTORY OF PRESENT ILLNESS: History obtained from ER provider and records. Unable to obtain history from the patient secondary to disorientation. Medical history significant for hypertension, history of alcohol/narcotic abuse , past tobacco abuse, chronic back pain, mood disorder as per records. Recent confinement under orthopedic service last July 2013 for back surgery. As per records, patient found by daughter at home yesterday wandering about, disoriented with several empty beer cans lying around. Patient noted to have dried emesis on his face. Px brought to the Emergency Room. Had to be restrained for agitation. MEDICAL HISTORY: As above. SURGERIES: Back surgery, right knee surgery. HOME MEDICATIONS: Include allopurinol, atenolol ALLERGIES: No known drug allergies. FAMILY HISTORY: Family history of heart disease. PERSONAL AND SOCIAL HISTORY: Past tobacco abuse abuse as per records; ongoing ETOH abuse. REVIEW OF SYSTEMS: Cannot be reliably obtained PHYSICAL EXAMINATION: VITAL SIGNS: Blood pressure was noted to be 188/119, pulse rate 110, RR 28, temperature 37.5, sats 96 on room air. GENERAL: Noted to be agitated, disoriented, lying down in the prone position, restrained on a stretcher. SKIN: Flushed. Warm HEENT: [place] palpebral conjunctivae. No ptosis. Dry mucosa. Partial alopecia. NECK: Supple, no tenderness. CHEST: Decreased effort. No tenderness. HEART: Tachycardic. Palpable LE pulses. ABDOMEN: Soft, nontender. EXTREMITIES: No edema, no tenderness. No gross deformities. NEUROLOGIC: Disoriented. No facial asymmetry. LABORATORIES: Hemoglobin was noted to be 15.6, white cell count 16, platelets 290. Sodium was noted to be 149, potassium 3.7, chloride 114, CO2 19, anion gap was 16, glucose 102 . Alcohol level was 55. CT of the head, no acute pathology. Chest x-ray, atelectasis. ASSESSMENT: 1. Disorientation 2 to ETOH withdrawal. ? Recreational drug use 2. AGMA secondary to alcoholic ketoacidosis 3. Hypertension, elevated secondary to alcohol withdrawal ? home BB compliance 4. History of narcotic abuse, past tobacco abuse as per records. 5. Chronic back pain 6. hx mood disorder, unknown stability PLAN: PCU DT precautions Facilitate home beta jessica. Follow urine tox Follow lactic acid, IVF Evaluate mood once patient coherent. May need inpatient Psych eval regarding issue. (Patient known to Dr. Mar as per records. Social service RE discharge planning DVT prophylaxis, Lovenox subQ. Full code. Will attempt to get in touch with patient's daughter in a.m to gather additional information regarding patient's background. Miss Stephany Lion at [phone]. Secondary contact is Mr. Bryan Lion (patient's brother) at [phone]. [facility]
[2017-07-13 10:38] LABS: PROTHROMBIN TIME (PATIENT) 10.7 SECONDS (9.0-12.0)
[2017-07-13] MEDS ORDERED: KETOROLAC TROMETHAMINE 30 MG/ML VIAL IV ONE (11:21)
[2017-07-13] MEDS: ENOXAPARIN 40 MG/0.4 ML SYR SC SCH (11:47)
[2017-07-13] MEDS: LORAZEPAM INJ 1 MG in SYRINGE 0.5 ML IV PRN ×2 (12:18→23:43)
[2017-07-13] MEDS ORDERED: LOPERAMIDE HCL 2 MG CAP PO PRN (13:45)
[2017-07-13] MEDS ORDERED: NSS + 20MEQ KCL 1000ML 1,000 ML IV SCH (13:45)
[2017-07-13] MEDS: LORAZEPAM 1 MG TAB PO PRN (16:45)
--- NOTE | 2017-07-13 16:56 | Progress Note ---
Internal Med Progress Note Date of Service: Jul 13, 2017. Provider Documentation: SUBJECTIVE: The patient was seen and examined Admitted with alcohol withdrawal Feels better now Complains of severe back pain -no radiation OBJECTIVE: Vital Signs-as noted below Exam: General-Moderate distress at rest No tremors and no palpitation,SOB Eyes-normal ENT-normal Neck-supple Lungs-clear to ausucltate bilaterally Heart-Regular,no murmur Abdomen-Benign,no masses,bowel sound present Extremities-NO edema Neuro-AAOx3 Lab data as noted below. ASSESSMENT & PLAN: Disorientation 2 to ETOH withdrawal. Admitted to tele Alcohol Withdrawal protocol Clinically better Continue current management IVF and Vitamins Social service for discharge planning Chronic Back Pain S/P Back surgery [place] PD[place] checked -Has been on Hydrocodone 5 mg and Tramadol for pain control Will give Hydrocodone Ativan as per PCP Hypertension, elevated secondary to alcohol withdrawal BB compliance Continue Atenolol History of narcotic abuse, past tobacco abuse as per records. Urine Drug screen -negative H/O mood disorder, unknown stability May need inpatient Psych eval regarding issue. (Patient known to Dr. Mar as per records. Social service RE discharge planning DVT prophylaxis, Lovenox subQ. Full code. Discussed with the Best friend in the room Vital Signs: Date Time Temp Pulse Resp B/P (MAP) Pulse Ox O2 Delivery O2 Flow Rate FiO2 07/13/17 14:58 36.8 75 20 152/90 (110) 98 Room Air 07/13/17 13:19 80 145/82 (103) 07/13/17 12:00 Room Air 07/13/17 11:17 36.4 79 18 167/86 (113) 99 Room Air 07/13/17 07:45 Room Air 07/13/17 04:00 36.4 79 22 154/88 (110) 100 Room Air 07/13/17 04:00 100 Room Air 07/13/17 01:36 99 176/86 07/13/17 00:56 36.8 100 26 163/79 97 Room Air 07/12/17 23:23 104 32 180/106 98 Room Air 07/12/17 23:03 199/166 07/12/17 22:56 86 26 07/12/17 22:41 121 29 07/12/17 22:26 108 22 99 07/12/17 22:24 161/98 07/12/17 22:11 142 15 07/12/17 21:56 125 29 96 07/12/17 21:44 Nasal Cannula 2.0 07/12/17 21:41 108 97 07/12/17 21:31 159/92 07/12/17 21:26 138 99 07/12/17 21:11 109 98 07/12/17 21:01 166/101 07/12/17 20:56 128 35 97 07/12/17 20:41 135 23 188/119 07/12/17 20:31 221/210 07/12/17 20:26 148 21 98 07/12/17 20:22 131/102 07/12/17 19:47 153/101 07/12/17 19:41 110 28 97 07/12/17 19:29 106 07/12/17 19:23 37.5 109 18 184/108 96 07/12/17 19:22 184/108 Lab Results: Results Past 24 Hours Test 07/12/17 19:43 07/12/17 19:45 07/12/17 22:10 07/13/17 00:00 Range/Units White Blood Count 16.77 4.8-10.8 K/uL Red Blood Count 4.73 4.7-6.1 M/uL Hemoglobin 15.6 14.0-18.0 g/dL Hematocrit 44.8 42-52 % Mean Corpuscular Volume 94.7 80-100 fL Mean Corpuscular Hemoglobin 33.0 25-34 pg Mean Corpuscular Hemoglobin Concent 34.8 32-36 g/dl Platelet Count 290 130-400 K/uL Mean Platelet Volume 10.8 7.4-10.4 fL Neutrophils (%) (Auto) 86.1 % Lymphocytes (%) (Auto) 6.3 % Monocytes (%) (Auto) 6.7 % Eosinophils (%) (Auto) 0.0 % Basophils (%) (Auto) 0.5 % Neutrophils # (Auto) 14.46 1.4-6.5 K/uL Lymphocytes # (Auto) 1.05 1.2-3.4 K/uL Monocytes # (Auto) 1.12 0.11-0.59 K/uL Eosinophils # (Auto) 0.00 0-0.5 K/uL Basophils # (Auto) 0.08 0-0.2 K/uL RDW Standard Deviation 51.2 36.4-46.3 fL RDW Coefficient of Variation 15.0 11.5-14.5 % Immature Granulocyte % (Auto) 0.4 % Immature Granulocyte # (Auto) 0.06 0.00-0.02 K/uL Sodium Level 149 136-145 mmol/L Potassium Level 3.6 3.5-5.1 mmol/L Chloride Level 114 98-107 mmol/L Carbon Dioxide Level 19 21-32 mmol/L Anion Gap 16.0 3-11 mmol/L Blood Urea Nitrogen 13 7-18 mg/dl Creatinine 1.39 0.60-1.40 mg/dl Est Creatinine Clear Calc Drug Dose 65.1 ml/min Estimated GFR () 69.9 Estimated GFR (Non- 60.3 BUN/Creatinine Ratio 9.3 10-20 Random Glucose 102 70-99 mg/dl Calcium Level 8.7 8.5-10.1 mg/dl Total Bilirubin 0.4 0.2-1 mg/dl Direct Bilirubin < 0.1 0-0.2 mg/dl Aspartate Amino Transf (AST/SGOT) 23 15-37 U/L Alanine Aminotransferase (ALT/SGPT) 25 12-78 U/L Alkaline Phosphatase 83 45-117 U/L Ammonia 46.4 11-32 umol/L Total Protein 7.4 6.4-8.2 gm/dl Albumin 3.8 3.4-5.0 gm/dl Globulin 3.6 2.5-4.0 gm/dl Albumin/Globulin Ratio 1.1 0.9-2 Thyroid Stimulating Hormone (TSH) 1.590 0.300-4.500 uIu/ml Salicylates Level < 1.7 2.8-20 mg/dl Acetaminophen Level < 2 10-30 ug/ml Ethyl Alcohol mg/dL 51.5 0-3 mg/dl Activated Partial Thromboplast Time 21.9 21.0-31.0 SECONDS Partial Thromboplastin Ratio 0.8 Procalcitonin < 0.05 0-0.5 ng/ml Lactic Acid Level 8.0 0.4-2.0 mmol/L Magnesium Level 2.0 1.8-2.4 mg/dl Total Creatine Kinase 299 39-308 U/L Troponin I 0.023 0-0.045 ng/ml Beta-Hydroxybutyric Acid 1.23 0.2-2.81 mg/dL Urine Osmolality 518 500-800 mOms/kg Test 07/13/17 01:00 07/13/17 03:59 07/13/17 10:14 Range/Units Urine Color YELLOW Urine Appearance CLEAR CLEAR Urine pH 6.0 4.5-7.5 Urine Specific [place] 1.019 1.000-1.030 Urine Protein TRACE NEG Urine Glucose (UA) NEG NEG Urine Ketones TRACE NEG Urine Occult Blood NEG NEG Urine Nitrite NEG NEG Urine Bilirubin NEG NEG Urine Urobilinogen NEG NEG Urine Leukocyte Esterase NEG NEG Urine WBC (Auto) 1-5 0-5 /hpf Urine RBC (Auto) 0-4 0-4 /hpf Urine Hyaline Casts (Auto) 1-5 0-5 /lpf Urine Epithelial Cells (Auto) 10-20 0-5 /lpf Urine Bacteria (Auto) NEG NEG Urine Opiates Screen NEG NEG Urine Methadone, Qualitative NEG NEG Urine Barbiturates NEG NEG Urine Phencyclidine (PCP) Level NEG NEG Ur Amphetamine/Methamphetamine NEG NEG MDMA (Ecstasy) Screen NEG NEG Urine Benzodiazepines Screen NEG NEG Urine Cocaine Metabolite NEG NEG Urine Marijuana (THC) NEG NEG White Blood Count 9.79 4.8-10.8 K/uL Red Blood Count 3.85 4.7-6.1 M/uL Hemoglobin 12.5 14.0-18.0 g/dL Hematocrit 36.8 42-52 % Mean Corpuscular Volume 95.6 80-100 fL Mean Corpuscular Hemoglobin 32.5 25-34 pg Mean Corpuscular Hemoglobin Concent 34.0 32-36 g/dl Platelet Count 223 130-400 K/uL Mean Platelet Volume 10.9 7.4-10.4 fL Neutrophils (%) (Auto) 76.4 % Lymphocytes (%) (Auto) 14.6 % Monocytes (%) (Auto) 8.0 % Eosinophils (%) (Auto) 0.1 % Basophils (%) (Auto) 0.5 % Neutrophils # (Auto) 7.48 1.4-6.5 K/uL Lymphocytes # (Auto) 1.43 1.2-3.4 K/uL Monocytes # (Auto) 0.78 0.11-0.59 K/uL Eosinophils # (Auto) 0.01 0-0.5 K/uL Basophils # (Auto) 0.05 0-0.2 K/uL RDW Standard Deviation 52.3 36.4-46.3 fL RDW Coefficient of Variation 15.3 11.5-14.5 % Immature Granulocyte % (Auto) 0.4 % Immature Granulocyte # (Auto) 0.04 0.00-0.02 K/uL Sodium Level 148 136-145 mmol/L Potassium Level 3.7 3.5-5.1 mmol/L Chloride Level 118 98-107 mmol/L Carbon Dioxide Level 23 21-32 mmol/L Anion Gap 7.0 3-11 mmol/L Blood Urea Nitrogen 13 7-18 mg/dl Creatinine 1.11 0.60-1.40 mg/dl Est Creatinine Clear Calc Drug Dose 81.5 ml/min Estimated GFR () 91.8 Estimated GFR (Non- 79.2 BUN/Creatinine Ratio 11.3 10-20 Random Glucose 97 70-99 mg/dl Osmolality 308 280-300 mOsm/kg Lactic Acid Level 4.4 2.5 0.4-2.0 mmol/L Calcium Level 7.9 8.5-10.1 mg/dl Ammonia 33.0 11-32 umol/L Prothrombin Time 10.7 9.0-12.0 SECONDS Prothromb Time International Ratio 1.0 0.9-1.1 Activated Partial Thromboplast Time 25.4 21.0-31.0 SECONDS Partial Thromboplastin Ratio 1.0 Microbiology Results 07/12/17 Blood Culture, Received Pending 07/12/17 Blood Culture, Received Pending
[2017-07-13] MEDS ORDERED: KETOROLAC TROMETHAMINE 30 MG/ML VIAL IV PRN (18:00)
[2017-07-13] MEDS: OXYCODONE HCL IR 5 MG TAB (IMMEDIATE RELEASE) PO PRN (20:44)
[2017-07-13] MEDS: GABAPENTIN 600MG Q8H DOSE PO SCH (21:45)
[2017-07-14] VITALS (10 sets, daily range): BP systolic 126–193; BP diastolic 73–116; PULSE 60–83; TEMP 36.4–36.9; O2SAT 95–98
[2017-07-14] MEDS: OXYCODONE HCL IR 5 MG TAB (IMMEDIATE RELEASE) PO PRN ×4 (02:23→21:02)
[2017-07-14] MEDS: LORAZEPAM INJ 1 MG in SYRINGE 0.5 ML IV PRN ×2 (04:59→15:05)
[2017-07-14] MEDS: GABAPENTIN 600MG Q8H DOSE PO SCH ×2 (05:24→15:00)
--- NOTE | 2017-07-14 05:26 | Progress Note ---
Internal Med Progress Note Date of Service: Jul 14, 2017. Provider Documentation: Made aware by RN of SBP 170-190s overnight. Patient asymptomatic. CR 60s AP Hypertensive urgency ETOH withdrawal Replace Atenolol with Coreg for now. Consider adding JENNIFER inhibitor to regimen if BP still uncontrolled with Coreg. Continue Ativan prn for agitation. Vital Signs: Date Time Temp Pulse Resp B/P (MAP) Pulse Ox O2 Delivery O2 Flow Rate FiO2 07/14/17 08:41 71 193/98 (129) 96 82 173/116 (135) 164/82 (109) 162/92 (115) 07/14/17 07:39 98 Room Air 07/14/17 07:29 36.8 69 20 161/108 (125) 97 07/14/17 04:00 Room Air 07/14/17 04:00 36.4 60 20 178/93 (121) 97 Room Air 07/14/17 00:03 162/88 (112) 07/14/17 00:00 Room Air 07/13/17 23:51 36.6 71 20 195/105 (135) 100 Room Air 07/13/17 20:00 Room Air 07/13/17 19:09 36.8 75 18 160/92 (114) 100 Room Air 07/13/17 16:00 98 Room Air 2.0 07/13/17 14:58 36.8 75 20 152/90 (110) 98 Room Air 07/13/17 13:19 80 145/82 (103) 07/13/17 12:00 Room Air 07/13/17 11:17 36.4 79 18 167/86 (113) 99 Room Air Lab Results: Results Past 24 Hours Test 07/13/17 10:14 07/13/17 21:36 07/14/17 05:59 Range/Units Prothrombin Time 10.7 9.0-12.0 SECONDS Prothromb Time International Ratio 1.0 0.9-1.1 Activated Partial Thromboplast Time 25.4 21.0-31.0 SECONDS Partial Thromboplastin Ratio 1.0 Lactic Acid Level 2.5 1.4 0.4-2.0 mmol/L White Blood Count 6.34 4.8-10.8 K/uL Red Blood Count 3.64 4.7-6.1 M/uL Hemoglobin 11.9 14.0-18.0 g/dL Hematocrit 34.2 42-52 % Mean Corpuscular Volume 94.0 80-100 fL Mean Corpuscular Hemoglobin 32.7 25-34 pg Mean Corpuscular Hemoglobin Concent 34.8 32-36 g/dl Platelet Count 158 130-400 K/uL Mean Platelet Volume 10.6 7.4-10.4 fL Neutrophils (%) (Auto) 54.7 % Lymphocytes (%) (Auto) 30.1 % Monocytes (%) (Auto) 8.4 % Eosinophils (%) (Auto) 5.7 % Basophils (%) (Auto) 0.8 % Neutrophils # (Auto) 3.47 1.4-6.5 K/uL Lymphocytes # (Auto) 1.91 1.2-3.4 K/uL Monocytes # (Auto) 0.53 0.11-0.59 K/uL Eosinophils # (Auto) 0.36 0-0.5 K/uL Basophils # (Auto) 0.05 0-0.2 K/uL RDW Standard Deviation 50.0 36.4-46.3 fL RDW Coefficient of Variation 14.8 11.5-14.5 % Immature Granulocyte % (Auto) 0.3 % Immature Granulocyte # (Auto) 0.02 0.00-0.02 K/uL
[2017-07-14] MEDS ORDERED: CARVEDILOL 3.125 MG TAB PO ONE (06:00)
[2017-07-14 06:16] LABS: BASO % 0.8 %; BASO ABS # 0.05 K/uL (0-0.2); COMPLETE YES; EOS % 5.7 %; HEMATOCRIT 34.2 % (42-52); IG% 0.3 %; LYMPH % 30.1 %; LYMPH ABS # 1.91 K/uL (1.2-3.4); MEAN CORPUSCULAR HEMOGLOBIN 32.7 pg (25-34); MEAN CORPUSCULAR HGB CONC 34.8 g/dl (32-36); MEAN PLATELET VOLUME 10.6 fL (7.4-10.4); MONO % 8.4 %; NEUT % 54.7 %; PLATELET COUNT 158 K/uL (130-400); RED BLOOD COUNT 3.64 M/uL (4.7-6.1); WHITE BLOOD COUNT 6.34 K/uL (4.8-10.8)
[2017-07-14] MEDS: THIAMINE HCL 100 MG TAB PO SCH (08:10)
[2017-07-14] MEDS: MULTIVITAMIN TAB PO SCH (08:11)
[2017-07-14] MEDS: LORAZEPAM 1 MG TAB PO PRN ×2 (08:31→20:08)
[2017-07-14] MEDS: CLONIDINE HCL 0.1 MG TAB PO PRN ×2 (09:14→17:26)
[2017-07-14] MEDS: ENOXAPARIN 40 MG/0.4 ML SYR SC SCH (12:00)
--- NOTE | 2017-07-14 16:29 | Progress Note ---
Internal Med Progress Note Date of Service: Jul 14, 2017. Provider Documentation: SUBJECTIVE: Seen and examined at bedside States feeling well today Eager to get discharged Denies chest pain, SOB, dizziness Has chronic back pain Family at bedside OBJECTIVE: Vital Signs-as noted below Physical Exam: General Appearance:Moderately built and nourished, no apparent distress Head: normocephalic, Atraumatic Eyes: normal inspection, EOMI, PERRL Neck: supple, Trachea midline Respiratory/Chest: Normal breath sounds, CTA Cardiovascular: S1, S2, No murmur Abdomen/GI:Soft, Non tender, Bowel sounds present Extremities/Musculoskelatal:normal inspection, no edema Neurologic/Psych:AAOX3, grossly no focal neurological deficits Skin: normal color, warm Lab data as noted below. ASSESSMENT & PLAN: Disorientation secondary to ETOH withdrawal. Continue Alcohol Withdrawal protocol Clinically improving Continue current management: Gabapentin, Thiamine, folic acid, Ativan PRN Social service for discharge planning Chronic Back Pain S/P Back surgery [place] PDMP checked -Has been on Hydrocodone 5 mg and Tramadol for pain control Continue Hydrocodone Ativan as per PCP Hypertension, elevated secondary to alcohol withdrawal ? BB compliance DC Atenolol Continue Coreg, Clonidine PRN History of narcotic abuse, past tobacco abuse as per records. Urine Drug screen -negative H/O mood disorder, unknown stability May need inpatient Psych eval regarding issue as outpatient (Patient known to Dr. Mar as per records. DVT Px: Lovenox subQ. Code Status: Full code. Disposition: Would benefit from Rehab [employer] consulted Vital Signs: Date Time Temp Pulse Resp B/P (MAP) Pulse Ox O2 Delivery O2 Flow Rate FiO2 07/14/17 16:01 Room Air 07/14/17 14:40 36.9 83 18 154/92 (112) 97 07/14/17 12:15 98 Room Air 07/14/17 11:13 36.8 82 18 146/93 (110) 95 07/14/17 08:41 71 193/98 (129) 96 82 173/116 (135) 164/82 (109) 162/92 (115) 07/14/17 07:39 98 Room Air 07/14/17 07:29 36.8 69 20 161/108 (125) 97 07/14/17 04:00 Room Air 07/14/17 04:00 36.4 60 20 178/93 (121) 97 Room Air 07/14/17 00:03 162/88 (112) 07/14/17 00:00 Room Air 07/13/17 23:51 36.6 71 20 195/105 (135) 100 Room Air 07/13/17 20:00 Room Air 07/13/17 19:09 36.8 75 18 160/92 (114) 100 Room Air Lab Results: Results Past 24 Hours Test 07/13/17 21:36 07/14/17 05:59 Range/Units Lactic Acid Level 1.4 0.4-2.0 mmol/L White Blood Count 6.34 4.8-10.8 K/uL Red Blood Count 3.64 4.7-6.1 M/uL Hemoglobin 11.9 14.0-18.0 g/dL Hematocrit 34.2 42-52 % Mean Corpuscular Volume 94.0 80-100 fL Mean Corpuscular Hemoglobin 32.7 25-34 pg Mean Corpuscular Hemoglobin Concent 34.8 32-36 g/dl Platelet Count 158 130-400 K/uL Mean Platelet Volume 10.6 7.4-10.4 fL Neutrophils (%) (Auto) 54.7 % Lymphocytes (%) (Auto) 30.1 % Monocytes (%) (Auto) 8.4 % Eosinophils (%) (Auto) 5.7 % Basophils (%) (Auto) 0.8 % Neutrophils # (Auto) 3.47 1.4-6.5 K/uL Lymphocytes # (Auto) 1.91 1.2-3.4 K/uL Monocytes # (Auto) 0.53 0.11-0.59 K/uL Eosinophils # (Auto) 0.36 0-0.5 K/uL Basophils # (Auto) 0.05 0-0.2 K/uL RDW Standard Deviation 50.0 36.4-46.3 fL RDW Coefficient of Variation 14.8 11.5-14.5 % Immature Granulocyte % (Auto) 0.3 % Immature Granulocyte # (Auto) 0.02 0.00-0.02 K/uL
[2017-07-14] MEDS: CARVEDILOL 3.125 MG TAB PO SCH (21:01)
[2017-07-15] VITALS: BP 125/80; PULSE 77; TEMP 36.8; O2SAT 97
[2017-07-15] MEDS ORDERED: GABAPENTIN 600MG Q12H DOSE PO SCH
[2017-07-15] MEDS: LORAZEPAM INJ 1 MG in SYRINGE 0.5 ML IV PRN (01:08)
[2017-07-15] MEDS: OXYCODONE HCL IR 5 MG TAB (IMMEDIATE RELEASE) PO PRN ×2 (03:06→09:09)
[2017-07-15] MEDS ORDERED: IBUPROFEN 200 MG TAB PO PRN (03:45)
[2017-07-15 04:00] VITALS: BP 155/80; PULSE 77; TEMP 36.7; O2SAT 96
[2017-07-15] MEDS ORDERED: IBUPROFEN 200 MG TAB PO ONE (04:00)
[2017-07-15 07:27] VITALS: BP 141/84; PULSE 71; TEMP 36.5; O2SAT 97
[2017-07-15 08:00] VITALS: O2SAT 98
[2017-07-15] MEDS: CARVEDILOL 3.125 MG TAB PO SCH (09:02)
[2017-07-15] MEDS: THIAMINE HCL 100 MG TAB PO SCH (09:03)
[2017-07-15] MEDS: MULTIVITAMIN TAB PO SCH (09:03)
[2017-07-15] MEDS: LORAZEPAM 1 MG TAB PO PRN (09:27)
--- NOTE | 2017-07-15 09:49 | Progress Note ---
Internal Med Progress Note Date of Service: Jul 15, 2017. Provider Documentation: SUBJECTIVE: Seen and examined at bedside Reports right wrist pain (Chronic, recurrent) Otherwise feeling well Denies chest pain, SOB, dizziness Has chronic back pain BP better No other complaints OBJECTIVE: Vital Signs-as noted below Physical Exam: General Appearance:Moderately built and nourished, no apparent distress Head: normocephalic, Atraumatic Eyes: normal inspection, EOMI, PERRL Neck: supple, Trachea midline Respiratory/Chest: Normal breath sounds, CTA Cardiovascular: S1, S2, No murmur Abdomen/GI:Soft, Non tender, Bowel sounds present Extremities/Musculoskelatal:normal inspection, no edema, Right Wrist mildly tender Neurologic/Psych:AAOX3, grossly no focal neurological deficits Skin: normal color, warm Lab data as noted below. ASSESSMENT & PLAN: Alcohol abuse disorder/Alcohol withdrawal. Continue Alcohol Withdrawal protocol Clinically improved Continue current management: Gabapentin, Thiamine, folic acid, Ativan PRN Social service consulted for discharge planning Chronic Back Pain S/P Back surgery [place] PDMP checked -Has been on Hydrocodone 5 mg and Tramadol for pain control Continue Hydrocodone Ativan as per PCP Hypertension, elevated secondary to alcohol withdrawal BP better Resume Atenolol upon discharge Clonidine PRN History of narcotic abuse, past tobacco abuse as per records. Urine Drug screen -negative H/O mood disorder, unknown stability May need inpatient Psych eval regarding issue as outpatient (Patient known to Dr. Mar as per records. DVT Px: Lovenox subQ. Code Status: Full code. Disposition: Plan to discharge home Patient would like to arrange to go to Rehab facility by himself and prefers to be discharged home despite explaining consequences Follow up with [facility] in 1 week as advised Follow up Rehab facility for further management as advised Follow up with your Netsuite Developer if your Wrist pain worsens Complete the prednisone course as prescribed Seek immediate medical attention if your symptoms reoccur or worsen Vital Signs: Date Time Temp Pulse Resp B/P (MAP) Pulse Ox O2 Delivery O2 Flow Rate FiO2 07/15/17 07:27 36.5 71 18 141/84 (103) 97 Room Air 07/15/17 04:51 Room Air 07/15/17 04:00 36.7 77 20 155/80 (105) 96 Room Air 07/15/17 00:05 Room Air 07/15/17 00:00 36.8 77 20 125/80 (95) 97 Room Air 07/14/17 20:00 Room Air 07/14/17 19:58 36.7 78 18 126/80 (95) 96 Room Air 07/14/17 16:49 82 173/73 (106) 07/14/17 16:01 Room Air 07/14/17 14:40 36.9 83 18 154/92 (112) 97 07/14/17 12:15 98 Room Air 07/14/17 11:13 36.8 82 18 146/93 (110) 95
[2017-07-15 09:51] VITALS: BP 141/84; PULSE 71; TEMP 36.5; O2SAT 97
[2017-07-15] MEDS ORDERED: PRD10 PO (10:02)
[2017-07-15] MEDS ORDERED: THM100 PO (10:02)
[2017-07-15] MEDS ORDERED: NRN600 PO (10:02)
[2017-07-15] MEDS ORDERED: FLV1 PO (10:02)
--- NOTE | 2017-07-15 10:04 | Discharge Summary ---
Discharge Summary Date of Service Jul 15, 2017. Discharge Summary Admission Date: Jul 12, 2017 at 22:13 Discharge Date: Jul 15, 2017 Discharge Disposition: Home Principal Diagnosis: Alcohol Withdrawal Procedures: CT head: Allowing for degradation of image quality due to motion artifact, no acute intracranial abnormality. CXR: Mildly low lung volumes. Otherwise no acute cardiopulmonary disease. Consultations: None Pending Studies/Follow-Up: Follow up with your Primary Care Physician at [facility] in 1 week as advised Follow up Rehab facility for further management as advised Follow up with your Superintendent [employer] if your Wrist pain worsens Complete the prednisone course as prescribed Seek immediate medical attention if your symptoms reoccur or worsen Medication Reconciliation New Medications: Folic Acid (Folic Acid) 1 Mg Tab 1 MG PO QAM for 14 Days, #14 TAB Gabapentin (Gabapentin) 600 Mg Tab 600 MG PO Q24H for 2 Days, #2 TAB Prednisone (Prednisone) 10 Mg Tab 10 MG PO DAILY for 4 Days, #4 TAB Thiamine HCl (Vitamin B-1) 100 Mg Tab 100 MG PO QAM for 14 Days, #14 TAB Admission Information HPI (per Admitting provider): CHIEF COMPLAINT: Overdose as per records. HISTORY OF PRESENT ILLNESS: History obtained from ER provider and records. Unable to obtain history from the patient secondary to disorientation. Medical history significant for hypertension, history of alcohol/narcotic abuse , past tobacco abuse, chronic back pain, mood disorder as per records. Recent confinement under orthopedic service last July 2013 for back surgery. As per records, patient found by daughter at home yesterday wandering about, disoriented with several empty beer cans lying around. Patient noted to have dried emesis on his face. Px brought to the Emergency Room. Had to be restrained for agitation. Physical Exam (per Admitting): PHYSICAL EXAMINATION: VITAL SIGNS: Blood pressure was noted to be 188/119, pulse rate 110, RR 28, temperature 37.5, sats 96 on room air. GENERAL: Noted to be agitated, disoriented, lying down in the prone position, restrained on a stretcher. SKIN: Flushed. Warm HEENT: [place] palpebral conjunctivae. No ptosis. Dry mucosa. Partial alopecia. NECK: Supple, no tenderness. CHEST: Decreased effort. No tenderness. HEART: Tachycardic. Palpable LE pulses. ABDOMEN: Soft, nontender. EXTREMITIES: No edema, no tenderness. No gross deformities. NEUROLOGIC: Disoriented. No facial asymmetry. Hospital Course Alcohol abuse disorder/Alcohol withdrawal. Continue Alcohol Withdrawal protocol Clinically improved Continue current management: Gabapentin, Thiamine, folic acid, Ativan PRN Social service consulted for discharge planning Chronic Back Pain S/P Back surgery [place] PDMP checked -Has been on Hydrocodone 5 mg and Tramadol for pain control Continue Hydrocodone Ativan as per PCP Hypertension, elevated secondary to alcohol withdrawal BP better Resume Atenolol upon discharge Clonidine PRN History of narcotic abuse, past tobacco abuse as per records. Urine Drug screen -negative H/O mood disorder, unknown stability May need inpatient Psych eval regarding issue as outpatient (Patient known to Dr. Mar as per records. DVT Px: Lovenox subQ. Code Status: Full code. Disposition: Plan to discharge home Patient would like to arrange to go to Rehab facility by himself and prefers to be discharged home despite explaining consequences Follow up with [facility] in 1 week as advised Follow up Rehab facility for further management as advised Follow up with your Superintendent [employer] if your Wrist pain worsens Complete the prednisone course as prescribed Seek immediate medical attention if your symptoms reoccur or worsen Total time spent on discharge = 34 minutes This includes examination of the patient, discharge planning, medication reconciliation, and communication with other providers. Discharge Instructions Discharge Instructions Date of Service Jul 15, 2017. Admission Reason for Admission: Alcohol Withdrawal Discharge Discharge Diagnosis / Problem: Alcohol Withdrawal Discharge Goals Goal(s): Decrease discomfort, Improve function Activity Recommendations Activity Limitations: resume your previous activity Exercise/Sports Limitations: as tolerated . Instructions / Follow-Up Instructions / Follow-Up Follow up with your Primary Care Physician at [facility] in 1 week as advised Follow up Rehab facility for further management as advised Follow up with your Superintendent [employer] if your Wrist pain worsens Complete the prednisone course as prescribed Seek immediate medical attention if your symptoms reoccur or worsen Current Hospital Diet Patient's current hospital diet: Regular Diet Discharge Diet Recommended Diet: AHA Diet (Heart Healthy) Pending Studies Studies pending at discharge: no Medical Emergencies . Who to Call and When: Medical Emergencies: If at any time you feel your situation is an emergency, please call 911 immediately. . Non-Emergent Contact Non-Emergency issues call your: Primary Care Provider Call Non-Emergent contact if: you have a fever, your pain is not controlled, your pain is worsening, your pain is unusual for you, your pain is concerning you, you have any medication questions Seek immediate medical attention if your symptoms reoccur or worsen . . "Provider Documentation" section prepared by Stephen Carr. . VTE Core Measure Inpt VTE Proph given/why not?: Enoxaparin (Lovenox)SQ <Electronically signed by Stephen Carr MD> Signed: 07/15/17 1004 Signed: The status of this report is Signed * If report status is Draft, the document has not been finalized by the responsible provider.
[2017-07-16] MEDS ORDERED: GABAPENTIN 600MG X1 DOSE PO SCH (12:00)
== END 2017-07-15 10:20 | disposition home or self-care (01) | DRG 897 ==
LOC: EDBD 19:11 → C.EDA 19:14 → C.MED 22:13 → ENRESERV 23:00
PROVIDERS: ADMIT Internal Medicine; ATTEND Internal Medicine
DX: F10.239 Alcohol dependence with withdrawal, unspecified (principal); F11.20 Opioid dependence, uncomplicated; E87.2 Acidosis; I10 Essential (primary) hypertension; M1A.9XX0 Chronic gout, unspecified, without tophus (tophi); Z87.891 Personal history of nicotine dependence; F39 Unspecified mood [affective] disorder; M54.9 Dorsalgia, unspecified; I16.0 Hypertensive urgency